=== PATIENT | female | born 1970 | race American Indian/Alaskan Native ===

== ENCOUNTER 2017-08-30 12:35 | Emergency (ER) | payer SELFPAY ==
[2017-08-30 12:42] VITALS: BP 144/81
[2017-08-30] MEDS ORDERED: NORCO 5/325 PO ONE (13:41)
--- NOTE | 2017-08-30 13:43 | Emergency Department Report ---
ED General Adult HPI - General Chief complaint: Extremity Injury, Upper Stated complaint: LEFT ARM PAIN Time Seen by Provider: 08/30/17 13:32 Source: patient Mode of arrival: Ambulatory Limitations: No Limitations - History of Present Illness Initial comments: 39-year-old history of hypertension having intermittent left shoulder pain worse with movement not sure if his discomfort from the neck seems to have point tenderness over the left deltoid and worse with movement with some tingling here for evaluation of it, no exertional symptoms of chest pain but worries about her heart, no feve no cough, no bladder or bowel problems -: Gradual, unknown Location: left, upper extremity Quality: burning Consistency: intermittent Worsens with: movement Associated Symptoms: denies: cough, diaphoresis, fever/chills, headaches, loss of appetite, malaise, nausea/vomiting, rash, seizure, shortness of breath, syncope, weakness - Related Data Previous Rx's Medication Instructions Recorded Last Taken Type Ibuprofen [Motrin] 600 mg PO Q8H PRN #30 tablet 08/30/17 Unknown Rx Allergies Allergy/AdvReac Type Severity Reaction Status Date / Time No Known Allergies Allergy Unverified 08/30/17 12:40 ED Review of Systems ROS: Stated complaint: LEFT ARM PAIN Other details as noted in HPI Comment: All other systems reviewed and negative Constitutional: denies: diaphoresis, fever, malaise Respiratory: denies: shortness of breath, SOB with exertion, SOB at rest, stridor Cardiovascular: chest pain. denies: dyspnea on exertion, orthopnea, edema, syncope, paroxysmal nocturnal dyspnea Endocrine: denies: excessive sweating, flushing Gastrointestinal: denies: abdominal pain, nausea, vomiting, diarrhea, constipation, hematemesis, melena, hematochezia Musculoskeletal: arthralgia, myalgia. denies: back pain Skin: denies: change in color, pruritus Neurological: paresthesias. denies: headache, weakness, numbness, confusion, abnormal gait, vertigo Psychiatric: denies: homicidal thoughts, suicidal thoughts ED Past Medical Hx - Past Medical History Hx Hypertension: Yes - Surgical History Additional Surgical History: tubal ligation - Social History Smoking Status: Never Smoker Substance Use Type: None - Medications Home Medications: Home Medications Medication Instructions Recorded Confirmed Last Taken Type Ibuprofen [Motrin] 600 mg PO Q8H PRN #30 tablet 08/30/17 Unknown Rx ED Physical Exam - General Limitations: No Limitations General appearance: alert - Head Head exam: Present: atraumatic, normocephalic - Eye Eye exam: Present: PERRL, EOMI - ENT ENT exam: Present: normal exam - Neck Neck exam: Present: normal inspection. Absent: meningismus - Respiratory Respiratory exam: Present: normal lung sounds bilaterally. Absent: respiratory distress, wheezes, rales, rhonchi, stridor, chest wall tenderness, accessory muscle use - Cardiovascular Cardiovascular Exam: Present: regular rate, normal rhythm, normal heart sounds. Absent: irregular rhythm - GI/Abdominal GI/Abdominal exam: Present: soft. Absent: tenderness, guarding, rebound, rigid , mass, pulsatile mass - Extremities Exam Extremities exam: Present: tenderness, normal capillary refill, other ( tenderness over the left deltoid with a reductionm, tenderness, decreased rom, poor ab/adduction, nvi, good pulse) - Neurological Exam Neurological exam: Present: alert, oriented X3, CN II-XII intact. Absent: motor sensory deficit ED Course Vital Signs 08/30/17 08/30/17 12:40 13:42 Temperature 98.7 F Pulse Rate 120 H Respiratory 18 18 Rate Blood Pressure 144/81 O2 Sat by Pulse 99 Oximetry ED Medical Decision Making - Lab Data Result diagrams: 08/30/17 13:55 08/30/17 13:55 - EKG Data -: EKG Interpreted by Me EKG shows normal: sinus rhythm - EKG Data Interpretation: no acute changes - Radiology Data Radiology results: report reviewed - Medical Decision Making Patient history of hypertension and tingling into the left arm however EKG is nondiagnostic troponin was negative 2. This does not seem to represent ACS. She had a CT cervical without signs of radiculopathy symptoms are likely related to a strain with tendinitis no evidence of thoracic outletsyndrome she is stablefor a possible outpt f/u - Differential Diagnosis ACS cervical rib thoracic outlet syndrome, reticular disease tendinitis str Critical care attestation.: If time is entered above; I have spent that time in minutes in the direct care of this critically ill patient, excluding procedure time. ED Disposition Clinical Impression: Shoulder pain, acute Disposition: DC-01 TO HOME OR SELFCARE Is pt being admited?: No Condition: Stable Instructions: Tendinitis (ED), Shoulder Sprain (ED) Additional Instructions: Return if new alarming symptoms see the doctor listed Prescriptions: Ibuprofen [Motrin] 600 mg PO Q8H PRN #30 tablet PRN Reason: Pain Referrals: PRIMARY CARE, [Primary Care Provider] - 3-5 Days DINA ESPITIA MD [Staff Physician] - 3-5 Days Time of Disposition: 18:17
[2017-08-30 14:09] LABS: Basophils # (Auto) 0.1 K/mm3 (0.0-0.1); Eosinophils # (Auto) 0.1 K/mm3 (0.0-0.4); Eosinophils % (Auto) 1.3 % (0.0-4.3); Hematocrit 37.7 % (30.3-42.9); Hemoglobin 12.3 gm/dl (10.1-14.3); Lymphocytes # (Auto) 1.3 K/mm3 (1.2-5.4); Lymphocytes % (Auto) 19.1 % (13.4-35.0); Mean Corpuscular HGB Conc 33 % (30-34); Mean Corpuscular Hemoglobin 28 pg (28-32); Mean Corpuscular Volume 84 fl (79-97); Monocytes # (Auto) 0.7 K/mm3 (0.0-0.8); Monocytes % (Auto) 9.8 % (0.0-7.3); Platelet Count 276 K/mm3 (140-440); Red Blood Count 4.47 M/mm3 (3.65-5.03); Red Cell Distribution Width 15.3 % (13.2-15.2)
[2017-08-30 14:34] LABS: Alanine Aminotransferase 19 units/L (7-56); Albumin 3.7 g/dL (3.9-5); BUN/Creatinine Ratio 11; Blood Urea Nitrogen 11 mg/dL (7-17); Calcium 8.7 mg/dL (8.4-10.2); Hemolysis Index 12
--- NOTE | 2017-08-30 15:24 | Cat Scan Report ---
FINAL REPORT PROCEDURE: CT CERVICAL SPINE WO CON TECHNIQUE: Computerized tomography of the cervical spine was performed from the skull base to T1 without contrast material. HISTORY: numbness COMPARISON: No prior studies are available for comparison. FINDINGS: The vertebral body heights and alignment are maintained. There are osteoarthritic changes of the atlantodental articulation. No acute fracture or subluxation is identified. The disc spaces are preserved. No osteophytes are seen. IMPRESSION: No acute osseous abnormality is seen.
--- NOTE | 2017-08-30 17:15 | XRay Report ---
FINAL REPORT PROCEDURE: XR CHEST ROUTINE 2V TECHNIQUE: PA and lateral chest radiographs were obtained. Lateral view limited due to patient's arm overlying thorax CPT 87184 HISTORY: Chest pain. COMPARISON: No prior studies are available for comparison. FINDINGS: Heart: Normal. Mediastinum/Vessels: Normal. Lungs/Pleural space: Normal. Bony thorax: No acute osseous abnormality. Other: IMPRESSION: No radiographic evidence of acute cardiopulmonary disease. Limited lateral view.
--- NOTE | 2017-08-30 21:00 | XRay Report ---
FINAL REPORT PROCEDURE: XR SHOULDER 2+V LT TECHNIQUE: LEFT shoulder radiographs including AP views in internal and external rotation and abduction. CPT 83601 HISTORY: Injury/ SHOULDER PAIN COMPARISON: No prior studies are available for comparison. FINDINGS: Fracture (s) and/or Dislocation(s): None . Joint space(s): Normal . Soft tissues: Normal . Bone mineralization: Normal . Foreign bodies: None . IMPRESSION: Normal Examination
== END 2017-08-30 18:39 | disposition home or self-care (01) ==
LOC: ED 12:35
DX: M25.512 Pain in left shoulder (principal); I10 Essential (primary) hypertension; Z98.51 Tubal ligation status
CPT/HCPCS: 36415; 71046; 72125; 80053; 84484; 84703; 85025; 93005; 93010